=== PATIENT | female | born 1985 | race Caucasian/White ===

== ENCOUNTER 2019-10-22 12:30 | Emergency (ER) | payer OTHER ==
[~2019-10-22] VITALS: Ht 157.5 cm; Wt 65.3 kg
[2019-10-22 12:49] VITALS: BP 127/72
--- NOTE | 2019-10-22 13:36 | NUR ---
PT TAKEN TO RAD VIA W/C
--- NOTE | 2019-10-22 13:39 | NUR ---
PT RETURNED FROM RAD VIA W/C
--- NOTE | 2019-10-22 15:02 | NUR ---
PT AMBULATED TO CHAIR B.
--- NOTE | 2019-10-22 15:17 | NUR ---
34/F presents ambulatory to ED, c/o cough, congestion, subjective fever/chills, x5 days. Reports throat pain and headache. Pt afebrile at this time. Pt awake and alert, skin normal color warm and dry, rr even and unlabored. Lung sounds clear BL Denies med hx, rx or otc.
--- NOTE | 2019-10-22 15:35 | NUR ---
PT LWBS AT THIS TIME, STATED SHE DOES NOT WANT TO WAIT. PT INSTRUCTED TO COME BACK FOR WORSENING SYMPTOMS. DR IRIZARRY AND CHAGO JOHN MADE AWARE.
== END 2019-10-22 15:35 | disposition left against medical advice (07) ==
LOC: MED 12:30
DX: R51 Headache (principal); R50.9 Fever, unspecified; J02.9 Acute pharyngitis, unspecified; R09.89 Other specified symptoms and signs involving the circulatory and respiratory systems; Z53.21 Procedure and treatment not carried out due to patient leaving prior to being seen by health care provider
CPT/HCPCS: 71046; 99281